=== PATIENT | female | born 1935 | race Two or more races ===

== ENCOUNTER 2020-02-16 13:16 | Outpatient (CLI) | payer MEDICARE, BC ==
[2020-02-16 15:05] LABS: BASOPHILS % (AUTO) 0.4 % (0.0-2.0); EOSINOPHILS % (AUTO) 0.9 % (0.0-6.0); HEMATOCRIT 35 % (33-45); HEMOGLOBIN 11.3 g/dL (11.5-14.8); LYMPHOCYTES # (AUTO) 1.1 /CMM (0.8-4.8); LYMPHOCYTES % (AUTO) 19.5 % (20.0-44.0); MEAN CORPUSCULAR HGB CONC 32 g/dl (31.0-36.0); MEAN CORPUSCULAR VOLUME 83 fL (82-100); MONOCYTES # (AUTO) 0.5 /CMM (0.1-1.30); MONOCYTES % (AUTO) 8.3 % (2.0-12.0); NEUTROPHILS # (AUTO) 4.1 /CMM (1.8-8.9); NEUTROPHILS % (AUTO) 70.9 % (43.0-81.0); PLATELET COUNT (AUTO) 182 /CMM (150-450); RED BLOOD CELL COUNT(AUTO) 4.22 MIL/uL (4.0-5.2); WHITE BLOOD COUNT (AUTO) 5.7 K/uL (4.3-11.0)
[2020-02-16 15:08] LABS: APPEARANCE,URINE CLEAR (CLEAR); BILIRUBIN,URINE NEGATIVE (NEGATIVE); BLOOD, URINE NEGATIVE Ery/uL (NEGATIVE); COLOR,URINE YELLOW (YELLOW); KETONES,URINE TRACE (NEGATIVE); LEUKOCYTE ESTERASE ,URINE TRACE (NEGATIVE); NITRITE, URINE POSITIVE (NEGATIVE); PROTEIN,URINE NEGATIVE (NEGATIVE); UGLUCOSE NEGATIVE (NEGATIVE); UROBILINOGEN,URINE 0.2 EU/dL (0.2)
[2020-02-16 15:14] LABS: ALBUMIN 3.7 g/dL (3.4-5.0); BILIRUBIN,TOTAL 0.2 mg/dL (0.2-1.0); CALCIUM, SERUM 8.8 mg/dL (8.5-10.1); MAGNESIUM 2.3 mg/dL (1.8-2.4); PHOSPHORUS 3.6 mg/dL (2.5-4.9); POTASSIUM 4.3 mmol/L (3.5-5.1); TOTAL PROTEIN, SERUM 7.1 g/dL (6.4-8.2)
[2020-02-16 15:24] LABS: FREE T4 (FREE THYROXINE) 1.11 ng/dL (0.76-1.46); THYROID STIMULATING HORMONE 1.37 uIU/mL (0.358-3.74)
[2020-02-16 15:26] LABS: BACTERIA,URINE 4+ /HPF (None Seen); SQUAMOUS EPITHELIAL CELL,UR 0-2 /HPF (None Seen)
[2020-02-17 07:29] LABS: FOLIC ACID > 20.0 ng/mL (>3.0)
== END 2020-02-16 23:59 | disposition home or self-care (01) ==
LOC: MSC 13:16
PROVIDERS: ATTEND Internal Medicine
DX: R10.9 Unspecified abdominal pain (principal); R53.83 Other fatigue; R32 Unspecified urinary incontinence; I73.00 Raynaud's syndrome without gangrene; I73.9 Peripheral vascular disease, unspecified; D86.9 Sarcoidosis, unspecified; R91.1 Solitary pulmonary nodule; E03.9 Hypothyroidism, unspecified; Z86.79 Personal history of other diseases of the circulatory system; Z86.59 Personal history of other mental and behavioral disorders
CPT/HCPCS: 36415; 80053; 81001; 82306; 82533; 82607; 82746; 83735; 84100; 84439; 84443; 85025; 85652; 87086; G0463; 81000-TC; 87186-TC

== ENCOUNTER 2020-03-29 12:09 | Outpatient (CLI) | payer MEDICARE, BC | END 2020-03-29 23:59 | disposition home or self-care (01) | LOC: MSC 12:09 | PROVIDERS: ATTEND Internal Medicine | DX: R53.83 Other fatigue (principal); R10.9 Unspecified abdominal pain; R32 Unspecified urinary incontinence; I73.00 Raynaud's syndrome without gangrene; R91.1 Solitary pulmonary nodule; D86.9 Sarcoidosis, unspecified; I73.9 Peripheral vascular disease, unspecified; E03.9 Hypothyroidism, unspecified ==

== ENCOUNTER 2020-06-28 12:30 | Outpatient (CLI) | payer MEDICARE, BC ==
[2020-06-28 13:57] LABS: BASOPHILS % (AUTO) 0.3 % (0.0-2.0); EOSINOPHILS % (AUTO) 0.9 % (0.0-6.0); HEMATOCRIT 33 % (33-45); HEMOGLOBIN 10.8 g/dL (11.5-14.8); LYMPHOCYTES % (AUTO) 18.8 % (20.0-44.0); MEAN CORPUSCULAR HGB CONC 33 g/dl (31.0-36.0); MEAN CORPUSCULAR VOLUME 84 fL (82-100); MONOCYTES # (AUTO) 0.4 /CMM (0.1-1.30); MONOCYTES % (AUTO) 7.7 % (2.0-12.0); NEUTROPHILS # (AUTO) 3.9 /CMM (1.8-8.9); NEUTROPHILS % (AUTO) 72.3 % (43.0-81.0); PLATELET COUNT (AUTO) 155 /CMM (150-450); RED BLOOD CELL COUNT(AUTO) 3.93 MIL/uL (4.0-5.2); WHITE BLOOD COUNT (AUTO) 5.4 K/uL (4.3-11.0)
[2020-06-28 14:18] LABS: ALBUMIN 3.8 g/dL (3.4-5.0); BILIRUBIN,TOTAL 0.3 mg/dL (0.2-1.0); CALCIUM, SERUM 9.3 mg/dL (8.5-10.1); CREATININE 1.1 mg/dL (0.6-1.3); POTASSIUM 4.5 mmol/L (3.5-5.1); TOTAL PROTEIN, SERUM 7.2 g/dL (6.4-8.2)
[2020-06-28 14:31] LABS: FREE T4 (FREE THYROXINE) 1.41 ng/dL (0.76-1.46); THYROID STIMULATING HORMONE 0.308 uIU/mL (0.358-3.74)
== END 2020-06-28 23:59 | disposition home or self-care (01) ==
LOC: MSC 12:30
PROVIDERS: ATTEND Internal Medicine
DX: R53.83 Other fatigue (principal); I73.00 Raynaud's syndrome without gangrene; R32 Unspecified urinary incontinence; R10.9 Unspecified abdominal pain; I10 Essential (primary) hypertension; R91.1 Solitary pulmonary nodule; D86.0 Sarcoidosis of lung; I73.9 Peripheral vascular disease, unspecified; Z87.891 Personal history of nicotine dependence; R13.10 Dysphagia, unspecified; R42 Dizziness and giddiness; E03.9 Hypothyroidism, unspecified; Z79.890 Hormone replacement therapy; Z79.899 Other long term (current) drug therapy
CPT/HCPCS: 36415; 80053; 82607; 84439; 84443; 85025; G0463

== ENCOUNTER 2020-07-02 13:15 | Outpatient (CLI) | payer MEDICARE, BC | END 2020-07-02 23:59 | disposition home or self-care (01) | LOC: MSC 13:15 | PROVIDERS: ATTEND Internal Medicine | DX: R32 Unspecified urinary incontinence (principal); R05 Cough; R53.83 Other fatigue; R10.9 Unspecified abdominal pain; I73.00 Raynaud's syndrome without gangrene; I10 Essential (primary) hypertension; D64.9 Anemia, unspecified; E03.9 Hypothyroidism, unspecified; R91.1 Solitary pulmonary nodule; D86.9 Sarcoidosis, unspecified; I73.9 Peripheral vascular disease, unspecified; Z79.899 Other long term (current) drug therapy ==

== ENCOUNTER 2020-07-19 13:57 | Outpatient (CLI) | payer MEDICARE, BC ==
[2020-07-19 15:26] LABS: BILIRUBIN,URINE NEGATIVE (NEGATIVE); COLOR,URINE YELLOW (YELLOW); LEUKOCYTE ESTERASE ,URINE TRACE (NEGATIVE); NITRITE, URINE POSITIVE (NEGATIVE); PROTEIN,URINE TRACE mg/dl (NEGATIVE); UGLUCOSE NEGATIVE (NEGATIVE); UROBILINOGEN,URINE 0.2 EU/dL (0.2)
[2020-07-19 15:38] LABS: BACTERIA,URINE 2+ /HPF (None Seen)
== END 2020-07-19 23:59 | disposition home or self-care (01) ==
LOC: MSC 13:57
PROVIDERS: ATTEND Internal Medicine
DX: R53.83 Other fatigue (principal); R41.89 Other symptoms and signs involving cognitive functions and awareness; R32 Unspecified urinary incontinence; R05 Cough; I73.00 Raynaud's syndrome without gangrene; I10 Essential (primary) hypertension; D64.9 Anemia, unspecified; R10.9 Unspecified abdominal pain; E03.9 Hypothyroidism, unspecified; R91.1 Solitary pulmonary nodule; D86.9 Sarcoidosis, unspecified; Z87.891 Personal history of nicotine dependence; I73.9 Peripheral vascular disease, unspecified; Z79.899 Other long term (current) drug therapy; R26.89 Other abnormalities of gait and mobility; Z91.81 History of falling
CPT/HCPCS: 81001; 87077; 87086; 87186; G0463

== ENCOUNTER 2020-07-22 10:54 | Outpatient (CLI) | payer MEDICARE, BC | END 2020-07-22 23:59 | disposition home or self-care (01) | LOC: CT 10:54 | PROVIDERS: ATTEND Internal Medicine | DX: G31.9 Degenerative disease of nervous system, unspecified (principal); I67.82 Cerebral ischemia; R53.83 Other fatigue; R41.89 Other symptoms and signs involving cognitive functions and awareness | CPT/HCPCS: 70450-TC ==

== ENCOUNTER 2020-07-26 15:45 | Outpatient (CLI) | payer MEDICARE, BC | END 2020-07-26 23:59 | disposition home or self-care (01) | LOC: MSC 15:45 | PROVIDERS: ATTEND Internal Medicine | DX: Z09 Encounter for follow-up examination after completed treatment for conditions other than malignant neoplasm (principal); R32 Unspecified urinary incontinence; N39.0 Urinary tract infection, site not specified; R53.83 Other fatigue; R41.89 Other symptoms and signs involving cognitive functions and awareness; R05 Cough; I73.00 Raynaud's syndrome without gangrene; I10 Essential (primary) hypertension; D64.9 Anemia, unspecified; R10.9 Unspecified abdominal pain; E03.9 Hypothyroidism, unspecified; R91.1 Solitary pulmonary nodule; D86.9 Sarcoidosis, unspecified; I73.9 Peripheral vascular disease, unspecified; Z79.899 Other long term (current) drug therapy ==

== ENCOUNTER 2020-08-11 11:21 | Outpatient (CLI) | payer MEDICARE, BC | END 2020-08-11 23:59 | disposition home or self-care (01) | LOC: MSC 11:21 | PROVIDERS: ATTEND Internal Medicine | DX: R32 Unspecified urinary incontinence (principal); N39.0 Urinary tract infection, site not specified; R53.83 Other fatigue; I10 Essential (primary) hypertension; R41.89 Other symptoms and signs involving cognitive functions and awareness; R05 Cough; I73.00 Raynaud's syndrome without gangrene; D64.9 Anemia, unspecified; R10.9 Unspecified abdominal pain; E03.9 Hypothyroidism, unspecified; R91.1 Solitary pulmonary nodule; D86.9 Sarcoidosis, unspecified; I73.9 Peripheral vascular disease, unspecified; Z79.899 Other long term (current) drug therapy ==

== ENCOUNTER 2020-09-20 12:30 | Outpatient (CLI) | payer MEDICARE, BC | END 2020-09-20 23:59 | disposition home or self-care (01) | LOC: MSC 12:30 | PROVIDERS: ATTEND Internal Medicine | DX: R32 Unspecified urinary incontinence (principal); Z87.440 Personal history of urinary (tract) infections; R05 Cough; R53.83 Other fatigue; R41.89 Other symptoms and signs involving cognitive functions and awareness; I10 Essential (primary) hypertension; I73.00 Raynaud's syndrome without gangrene; D64.9 Anemia, unspecified; R10.9 Unspecified abdominal pain; E03.9 Hypothyroidism, unspecified; R91.1 Solitary pulmonary nodule; I73.9 Peripheral vascular disease, unspecified; D86.9 Sarcoidosis, unspecified; Z79.899 Other long term (current) drug therapy ==